=== PATIENT | male | born 1950 | race Caucasian/White ===

== ENCOUNTER 2016-12-22 21:34 | Emergency (ER) | payer MEDICARE, OTHER ==
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
[2016-12-22] MEDS ORDERED: KETOROLAC TROMETHAMINE 60 MG/2 ML VIAL IM ONE ×2 (23:42→23:43)
[2016-12-22 23:51] VITALS: BP 138/75
== END 2016-12-22 23:52 | disposition home or self-care (01) ==
LOC: ER 21:34
DX: S80.11XA Contusion of right lower leg, initial encounter (principal); X58.XXXA Exposure to other specified factors, initial encounter; Y93.I9 Activity, other involving external motion; Y92.9 Unspecified place or not applicable